=== PATIENT | female | born 1955 | race Caucasian/White ===

== ENCOUNTER 2019-11-21 07:27 | Outpatient (CLI) | payer OTHER ==
[~2019-11-21 07:27] MED LIST: EFFEXOR XR75 MG; PHENABID D1 TAB.SR .
== END 2019-11-21 15:00 | disposition home or self-care (01) ==
LOC: LAB 07:27
PROVIDERS: ATTEND Obstetrics & Gynecology
DX: E03.8 Other specified hypothyroidism (principal); R50.9 Fever, unspecified; I10 Essential (primary) hypertension; R73.09 Other abnormal glucose; K92.1 Melena; N39.0 Urinary tract infection, site not specified; E16.1 Other hypoglycemia; E78.2 Mixed hyperlipidemia; E56.8 Deficiency of other vitamins; E55.9 Vitamin D deficiency, unspecified; R97.1 Elevated cancer antigen 125 [CA 125]; R53.1 Weakness; E66.01 Morbid (severe) obesity due to excess calories; Z11.3 Encounter for screening for infections with a predominantly sexual mode of transmission

== ENCOUNTER 2019-11-21 08:43 | Outpatient (CLI) | payer OTHER | END 2019-11-21 08:54 | disposition home or self-care (01) | LOC: MAMO-SONO 08:43 | PROVIDERS: ATTEND Obstetrics & Gynecology | DX: Z12.31 Encounter for screening mammogram for malignant neoplasm of breast (principal); N64.4 Mastodynia; N64.59 Other signs and symptoms in breast ==

== ENCOUNTER → 2020-07-04 15:00 | Outpatient (CLI) | payer OTHER | END | disposition home or self-care (01) | LOC: PPH VACUNA 15:00 | PROVIDERS: ATTEND Emergency Medicine Pediatric Emergency Medicine | DX: Z23 Encounter for immunization (principal) ==

== ENCOUNTER 2020-07-25 13:47 | Outpatient (CLI) | payer OTHER | END 2020-07-25 13:48 | disposition home or self-care (01) | LOC: PPH VACUNA 13:47 | PROVIDERS: ATTEND Emergency Medicine Pediatric Emergency Medicine | DX: Z23 Encounter for immunization (principal) ==

== ENCOUNTER 2022-08-23 | Outpatient (CLI) | payer OTHER ==
[~2022-08-23] MED LIST changes: +AMOX-CLAV 875-1 EACH PO; +CLONAZEPAM0.5 M1 PO; +CYMBALTA60 MG PO; +MEDROLPACK PO; +TUSNEL LIQUID178 ML PO; +XOPENEX0.63 MG/3 IH; +ZYRTEC10 M3 PO
== END 2022-08-23 00:15 | disposition home or self-care (01) ==
LOC: PPH VACUNA
PROVIDERS: ATTEND Emergency Medicine Pediatric Emergency Medicine
DX: Z23 Encounter for immunization (principal)